=== PATIENT | male | born 1955 ===

== ENCOUNTER 2018-05-23 00:49 | Day surgery (SDC) | payer OTHER ==
[2018-05-22 08:05] LABS: BASOPHILS ABSOLUTE AUTO 0.05 K/mm3 (0.00-0.23); BASOPHILS PERCENT AUTO 1 % (0-2); EOSINOPHILS PERCENT AUTO 2 % (0-6); Hematocrit 42.6 % (37.0-53.0); Hemoglobin 13.4 g/dL (13.5-17.5); IMMATURE GRAN ABSOLUTE AUTO 0.02 K/mm3 (0.00-0.10); IMMATURE GRAN PERCENT AUTO 0 % (0-1); LYMPHOCYTES ABSOLUTE AUTO 3.02 K/mm3 (0.84-5.20); LYMPHOCYTES PERCENT AUTO 37 % (21-46); MONOCYTES ABSOLUTE AUTO 0.91 K/mm3 (0.16-1.47); MONOCYTES PERCENT AUTO 11 % (4-13); Mean Corpuscular HGB Conc 31.5 g/dL (31.5-36.5); Mean Corpuscular Volume 89 fL (80-100); Mean Platelet Volume 11.3 fL (9.1-12.4); NEUTROPHILS ABSOLUTE AUTO 4.06 K/mm3 (1.96-9.15); NEUTROPHILS PERCENT AUTO 49 % (41-73); Platelet Count 215 K/mm3 (150-400); RDW Coefficient Variation 16.3 % (11.7-14.2); RDW Standard Deviation 53.6 fL (35.1-46.3); Red Blood Cell Count 4.78 M/mm3 (4.30-5.90); White Blood Cell Count 8.26 K/mm3 (4.00-11.30)
[2018-05-22 08:18] LABS: International Normalized Ratio 1.1; Prothrombin Time Results 11.3 Sec (9.7-11.5)
[2018-05-22 08:19] LABS: Anion Gap 8 mmol/L (6-16); Blood Urea Nitrogen 17 mg/dL (8-24); Bun/Creatinine Ratio 15.9 (12.0-20.0); CO2, Blood 29 mmol/L (21-32); Calcium, Blood 8.9 mg/dL (8.5-10.1); Chloride, Blood 101 mmol/L (98-108); Creatinine, Blood 1.07 mg/dL (0.60-1.20); Glomerular Filtration Rate >60 (60-); Glucose, Blood 105 mg/dL (70-99); Potassium, Blood 4.4 mmol/L (3.5-5.5); Sodium, Blood 138 mmol/L (136-145)
[~2018-05-23] VITALS: Ht 185.4 cm; Wt 105.0 kg
[~2018-05-23 00:49] MED LIST: ALLO300 PO; ATOR20 PO; Effexor Xr150 MG PO; LOSA50 PO; Mirapex1 MG PO; PANT40 PO
[2018-05-23] MEDS ORDERED: Nitrostat0.4 MG SL (06:48)
[2018-05-23] MEDS ORDERED: HYDHOMSY PO (06:50)
[2018-05-23] MEDS ORDERED: ALBU90OI61 INH (06:51)
[2018-05-23] MEDS ORDERED: Metformin HCl500 MG PO (06:52)
[2018-05-23] MEDS ORDERED: WARF2 PO (06:52)
[2018-05-23] MEDS ORDERED: Lopressor 50 mg50 MG PO (06:52)
[2018-05-23] MEDS ORDERED: ENOX100I SC (07:50)
== END 2018-05-23 22:41 | disposition home or self-care (01) ==
LOC: MHTC 00:49
PROVIDERS: Internal Medicine Cardiovascular Disease
PROC: B246ZZ4 Ultrasonography of Right and Left Heart, Transesophageal (ICD-10-PCS; principal; 2018-05-23)
DX: I34.0 Nonrheumatic mitral (valve) insufficiency (principal); I34.1 Nonrheumatic mitral (valve) prolapse; I35.0 Nonrheumatic aortic (valve) stenosis; Z95.2 Presence of prosthetic heart valve; I10 Essential (primary) hypertension; E78.5 Hyperlipidemia, unspecified; E11.9 Type 2 diabetes mellitus without complications; G47.33 Obstructive sleep apnea (adult) (pediatric)
CPT/HCPCS: 36415; 80048; 82947; 85025; 85610; 93312; 93325; J2250; J7120

== ENCOUNTER 2023-02-01 06:29 | Emergency (ER) | payer OTHER ==
[~2023-02-01] VITALS: Ht 185.4 cm; Wt 74.8 kg
[~2023-02-01 06:29] MED LIST changes: +ALBU90OI61 INH; +AMOCLA875 PO; +ENOX100I SC; +HYDHOMSY PO; +Lopressor 50 mg50 MG PO; +Metformin HCl500 MG PO; +Nitrostat0.4 MG SL; +WARF2 PO
[2023-02-01 08:06] LABS: BASOPHILS ABSOLUTE AUTO 0.06 K/mm3 (0.00-0.23); BASOPHILS PERCENT AUTO 1 % (0-2); EOSINOPHILS ABSOLUTE AUTO 0.12 K/mm3 (0.00-0.68); EOSINOPHILS PERCENT AUTO 1 % (0-6); Hematocrit 36.9 % (37.0-53.0); Hemoglobin 12.6 g/dL (13.5-17.5); IMMATURE GRAN ABSOLUTE AUTO 0.02 K/mm3 (0.00-0.10); IMMATURE GRAN PERCENT AUTO 0 % (0-1); LYMPHOCYTES ABSOLUTE AUTO 1.52 K/mm3 (0.84-5.20); LYMPHOCYTES PERCENT AUTO 17 % (21-46); MONOCYTES PERCENT AUTO 11 % (4-13); Mean Corpuscular HGB 31.5 pg (26.0-34.0); Mean Corpuscular HGB Conc 34.1 g/dL (31.5-36.5); Mean Corpuscular Volume 92 fL (80-100); Mean Platelet Volume 11.1 fL (9.1-12.4); NEUTROPHILS PERCENT AUTO 70 % (41-73); Platelet Count 189 K/mm3 (150-400); RDW Coefficient Variation 15.5 % (11.7-14.2); RDW Standard Deviation 51.7 fL (35.1-46.3); White Blood Cell Count 9.02 K/mm3 (4.00-11.30)
[2023-02-01 08:23] LABS: Albumin, Blood 3.2 g/dL (3.4-5.0); Albumin/Globulin Ratio 0.9 (0.8-1.8); Bilirubin, Total 0.4 mg/dL (0.1-1.0); Bun/Creatinine Ratio 20.2 (12.0-20.0); Calcium, Blood 8.6 mg/dL (8.5-10.1); Creatinine, Blood 0.74 mg/dL (0.60-1.20); Globulin, Blood 3.5 g/dL (2.2-4.0); Potassium, Blood 4.2 mmol/L (3.5-5.5); Total Protein, Blood 6.7 g/dL (6.4-8.2)
== END 2023-02-01 09:57 | disposition home or self-care (01) ==
LOC: ER 06:29
PROVIDERS: Emergency Medicine
DX: I11.0 Hypertensive heart disease with heart failure (principal); I50.9 Heart failure, unspecified; F41.9 Anxiety disorder, unspecified; F32.A Depression, unspecified; I48.91 Unspecified atrial fibrillation; Z88.8 Allergy status to other drugs, medicaments and biological substances; Z79.899 Other long term (current) drug therapy; Z79.01 Long term (current) use of anticoagulants; Z79.84 Long term (current) use of oral hypoglycemic drugs
CPT/HCPCS: 36415; 71045; 80053; 83880; 84484; 85025; 93005; 93010; 96374; 96375; 99284-25; J1940; J2405

== ENCOUNTER 2025-06-22 15:40 | Inpatient (IN) | payer OTHER ==
[~2025-06-22] VITALS: Ht 185.4 cm; Wt 83.0 kg
[~2025-06-22 15:40] MED LIST changes: +ALBU90OI INH; -ALBU90OI61 INH; -ATOR20 PO; +ATOR80 PO; -Lopressor 50 mg50 MG PO; +METF500 PO; +METO25 PO; -Metformin HCl500 MG PO
[2025-06-22] MEDS ORDERED: Albuterol 2.5 MG/3 ML VIAL INH PRN (21:35)
[2025-06-22] MEDS ORDERED: Ondansetron HCl 2 MG / ML 2ML Vial IV PRN (21:40)
[2025-06-23] VITALS (8 sets, daily range): BP systolic 87–109; BP diastolic 64–88
--- NOTE | 2025-06-23 04:57 | NUR ---
PT A&O X4, VS WNL WITH EXCEPTION THAT B/P IS EXTREMELY LOW WHEN IN LYING POSITION. PT ARRIVED TO UNIT FROM ED, AND THEN PREVI[facility]. PT UP WITH ASSIST, DENIES PAIN, AND O2 @ 3L/NC WHICH IS BASELINE. HE IS COARSE WITH OCCASIONAL WHEEZING NOTED FOR LS, TELE IS AFIB IN 80'S. SKIN INTACT. USES CALL SYSTEM APPROPRIATELY. PLAN TO RETURN HOME WITH NEPHEW.
[2025-06-23 06:28] LABS: Alanine Aminotransfer (ALT/SGP 40.0 U/L (12-78); Albumin, Blood 2.5 g/dL (3.4-5.0); Albumin/Globulin Ratio 0.7 (0.8-1.8); Anion Gap 7.0 mmol/L (3-11); Aspartate Aminotrans (AST/SGOT 50.0 U/L (12-37); Bilirubin, Total 1.6 mg/dL (0.1-1.0); Blood Urea Nitrogen 15.0 mg/dL (8-24); CO2, Blood 34.0 mmol/L (21-32); Calcium, Blood 8.0 mg/dL (8.5-10.1); Chloride, Blood 99.0 mmol/L (98-108); Creatinine, Blood 0.67 mg/dL (0.60-1.20); Globulin, Blood 3.7 g/dL (2.2-4.0); Glucose, Blood 90.0 mg/dL (70-99); Magnesium, Blood 1.8 mg/dL (1.6-2.4); Potassium, Blood 3.9 mmol/L (3.5-5.5); Sodium, Blood 136.0 mmol/L (136-145); Total Protein, Blood 6.2 g/dL (6.4-8.2)
[2025-06-23 06:33] LABS: Hematocrit 28.9 % (37.0-53.0); Hemoglobin 9.4 g/dL (13.5-17.5); Mean Corpuscular HGB Conc 32.5 g/dL (31.5-36.5); Mean Corpuscular Volume 91 fL (80-100); NRBC ABSOLUTE 0.00 K/mm3 (0.00-0.02); NRBC Auto 0.0 /100 WBC (0.0-0.2); Platelet Count 127 K/mm3 (150-400); RDW Coefficient Variation 18.5 % (11.7-14.2); RDW Standard Deviation 60.2 fL (35.1-46.3)
[2025-06-23] MEDS ORDERED: Vancomycin (Pharmacy Consult) IV SCH (07:25)
[2025-06-23] MEDS ORDERED: Insulin Human Lispro 100 Units/ML 3ML Syringe SC SCH (07:30)
[2025-06-23] MEDS ORDERED: NS 250 ML IV PRN (09:00)
[2025-06-23] MEDS ORDERED: CefTRIAXone Sodium 1,000 MG in NS 100 ML IV SCH (09:00)
--- NOTE | 2025-06-23 15:09 | NUR ---
CALLED RESIDENT- SPOKE TO ELLI AND CONVEYED THE PT C/O RESTLESS LEGS. PT APPEARED TO HAVE AN INCREASED WORK OF BREATHING, THOUGH HE DENIES FEELING SHORT OF BREATH. O2 SATS WERE DIFFICULT TO OBTAIN, THE PULSE OX WAS NOT READING WELL. FINAL READING SHOWS 100% ON 3L VIA NC. THEY WILL COME SEE THE PT.
--- NOTE | 2025-06-23 17:22 | NUR ---
CARDIOLOGY CAME TO SEE THE PT- CARDIOLOGY CAME AND SPOKE TO THE PT ABOUT HIS ECHO RESULTS AND WHAT THAT MEANS FOR THE PT. HE HAD A CONVERSATION WITH THE PT ABOUT CODE STATUS AND THE PT STATED HE WANTS TO BE DNR. DR FABIAN REQUESTED THIS RN TO CHANGE THE PT CODE STATUS TO DNR IN THE COMPUTER. ORDER PLACED IN ORDER MANAGEMENT.
[2025-06-23] MEDS ORDERED: Furosemide 10 MG / ML 2ML Vial IV SCH (18:00)
--- NOTE | 2025-06-23 19:44 | NUR ---
SHIFT SUMMARY- PT ALERT AND ORIENTED. HE HAS HAD INCREASED WORK OF BREATHING WITH ANY ACTIVITY. CARDIOLOGY CAME TO SEE THE PT AND ORDERED A OT ORDER OF METOLAZONE PO. CALLED DR ZALDIVAR PRIOR TOP ADMINISTRATION THE PT BP WAS 102/77 WITH A MAP OF 89. ORDER TO GIVE THE METOLAZONE AND THE LASIX, PT RECIEVED A DOSE OF [place] WELL. REQUESTED HOLD PARAMETERS FOR THE IV LASIX; ORDER TO HOLD FOR SBP LESS THAN 90. FAMILY IS AT THE BEDSIDE. DNR WAS CONFIRMED WITH COUNTY HISTORIAN [place] AND PLACED ON THE PT LEFT WRIST AT THE TIME OF BEDSIDE REPORT. NIGHT RN IS AWARE. FAMILY IS AWARE. PT SITTING UP IN BED, AND C/O DIZZINESS. NIGHT RN DOING VITALS RECHECK. NO ADDITIONAL S&S OF DISTRESS NOTED AT THE TIME OF BEDSIDE REPORT.
[2025-06-24] VITALS (9 sets, daily range): BP systolic 91–156; BP diastolic 69–133
--- NOTE | 2025-06-24 03:47 | NUR ---
PT ALERT AND ORIENTD X4 DURING SHIFT. PATIENT SPENT TIME WITH FAMILY DURING SHIFT. DUE TO BEING ON LASIX AND PATIENT WANTING TO GET QUALITY REST DURING THE NIGHT, A EXTERNAL CATHETER WAS PLACED. PATIENT USES CALL LIGHT APPROPRIATELY. BED IN LOW POSITION WITH THE WHEELS LOCKED. CALL LIGHT WITHIN REACH
[2025-06-24 05:42] LABS: BASOPHILS ABSOLUTE AUTO 0.05 K/mm3 (0.00-0.23); BASOPHILS PERCENT AUTO 1 % (0-2); EOSINOPHILS ABSOLUTE AUTO 0.05 K/mm3 (0.00-0.68); EOSINOPHILS PERCENT AUTO 1 % (0-6); Hematocrit 27.8 % (37.0-53.0); Hemoglobin 9.2 g/dL (13.5-17.5); IMMATURE GRAN ABSOLUTE AUTO 0.03 K/mm3 (0.00-0.10); IMMATURE GRAN PERCENT AUTO 1 % (0-1); LYMPHOCYTES ABSOLUTE AUTO 0.96 K/mm3 (0.84-5.20); LYMPHOCYTES PERCENT AUTO 16 % (21-46); MONOCYTES ABSOLUTE AUTO 0.80 K/mm3 (0.16-1.47); MONOCYTES PERCENT AUTO 13 % (4-13); Mean Corpuscular HGB Conc 33.1 g/dL (31.5-36.5); Mean Corpuscular Volume 91 fL (80-100); NEUTROPHILS ABSOLUTE AUTO 4.32 K/mm3 (1.96-9.15); NEUTROPHILS PERCENT AUTO 70 % (41-73); NRBC ABSOLUTE 0.00 K/mm3 (0.00-0.02); NRBC Auto 0.0 /100 WBC (0.0-0.2); Platelet Count 129 K/mm3 (150-400); RDW Coefficient Variation 18.1 % (11.7-14.2); RDW Standard Deviation 59.0 fL (35.1-46.3)
[2025-06-24 06:07] LABS: Alanine Aminotransfer (ALT/SGP 36.0 U/L (12-78); Albumin, Blood 2.4 g/dL (3.4-5.0); Albumin/Globulin Ratio 0.7 (0.8-1.8); Anion Gap 5.0 mmol/L (3-11); Aspartate Aminotrans (AST/SGOT 43.0 U/L (12-37); Bilirubin, Total 1.0 mg/dL (0.1-1.0); Blood Urea Nitrogen 18.0 mg/dL (8-24); CO2, Blood 37.0 mmol/L (21-32); Calcium, Blood 8.1 mg/dL (8.5-10.1); Chloride, Blood 96.0 mmol/L (98-108); Creatinine, Blood 0.77 mg/dL (0.60-1.20); Globulin, Blood 3.6 g/dL (2.2-4.0); Glucose, Blood 105.0 mg/dL (70-99); Potassium, Blood 3.5 mmol/L (3.5-5.5); Sodium, Blood 134.0 mmol/L (136-145); Total Protein, Blood 6.0 g/dL (6.4-8.2)
[2025-06-24] MEDS ORDERED: FERSU300 PO (12:43)
[2025-06-24] MEDS ORDERED: ELIQUIS5 M2 PO (12:43)
[2025-06-24] MEDS ORDERED: LIDO700A20 TOP (12:43)
[2025-06-24] MEDS ORDERED: FURO20 PO (12:43)
[2025-06-24] MEDS ORDERED: POTA10T PO (12:43)
[2025-06-24] MEDS ORDERED: ROPINIROLE HCL4 M2 PO (12:44)
[2025-06-24 12:45] LABS: Anion Gap 6.0 mmol/L (3-11); Blood Urea Nitrogen 17.0 mg/dL (8-24); CO2, Blood 38.0 mmol/L (21-32); Calcium, Blood 8.5 mg/dL (8.5-10.1); Chloride, Blood 94.0 mmol/L (98-108); Creatinine, Blood 0.73 mg/dL (0.60-1.20); Glucose, Blood 114.0 mg/dL (70-99); Magnesium, Blood 2.0 mg/dL (1.6-2.4); Potassium, Blood 3.6 mmol/L (3.5-5.5); Sodium, Blood 134.0 mmol/L (136-145)
[2025-06-24] MEDS ORDERED: GABA300 PO (12:45)
[2025-06-24] MEDS ORDERED: STIOLTO RESPIMAT4 G1 INH (12:46)
[2025-06-24] MEDS ORDERED: Lidocaine 4% 1 Patch TOP PRN (13:15)
[2025-06-24] MEDS ORDERED: Ipratropium/Albuterol SulF 2.5-0.5MG/3 ML Amp INH SCH ×2 (13:20→19:32)
--- NOTE | 2025-06-24 16:22 | NUR ---
MET WITH PATIENT. DISCUSSED POLST. PATIENT CHOSE COMFORT MEASURES AND DNR. THERAPUTIC CONVERSATION. PATIENT WOULD LIKE ME TO COME BACK TOMORROW TO DISCUSS HOSPICE WITH HIM AND HIS DAUGHTER
[2025-06-24] MEDS ORDERED: Potassium Chloride 10 Meq Tablet SA PO SCH (17:00)
--- NOTE | 2025-06-24 19:45 | NUR ---
SHIFT SUMMARY- PT ALERT AND ORIENTED. HE HAS A PUREWICK IN PLACE AND HAS HAD 3.5L OF URINE OUTPUT. CANISTER EMPTIED JUST PRIOR TO SHIFT CHANGE. PT WAS C/O SOME MUSCLE CRAMPING IN HIS FORE ARM TODAY. PT WAS ALERT AND PARTICIPATED IN BEDSIDE REPORT THIS EVENING. HE APPEARS VERY DRY, PALE AND DRAWN. HE IS VERY SAD ABOUT HIS DIAGNOSIS BUT WANTS TO REMAIN UPBEAT. WILL PLACE A PASTORAL CARE CONSULT FOR HIM PRIOR TO LEAVING. HE HAS A WEEPING WOUND ON THE LEFT CALF. HE USES THE IS AND FLUTTER VALVE WELL. PT SITTING UP IN BED, CALL LIGHT IN REACH NO S&S OF DISTRESS NOTED AT THE TIME OF BEDSIDE REPORT.
[2025-06-25 00:12] VITALS: BP 101/61
[2025-06-25 04:38] VITALS: BP 104/83
--- NOTE | 2025-06-25 05:15 | NUR ---
BAND SAW RUNNER SUMMARY PT A&OX4, VSS. CONCERNS FOR HYPOTENSION DURING AM SHIFT. HOWEVER, BP HAS BEEN SLOWLY COMING BACK UP. PT HAS NOT BEEN GETTING CONSISTENT SLEEP THROUGHOUT THE NIGHT. RESTING ON AND OFF. PT STATES THIS IS NORMAL D/T CHRONIC PAIN. WHEN ASKED ABOUT OBTAINING PAIN MEDS FOR PT, PT STATED HE WANTED TO STAY AWAY FROM ANY SORT OF PAIN PILLS. LIDOCAINE PATCH ADMINISTERED INSTEAD TO HELP WITH PAIN. LLE WOUND DRESSING CHANGED PER ORDER. DRESSING REMAINS CLEAN DRY AND INTACT. MALE PUREWICK IN PLACE. DRAINING CLEAR, YELLOW URINE TO GRAVITY. PT IS ALSO TRYING TO REMAIN OPTIMISTIC W/ NEW DIAGNOSIS. PT WILL REMINISCE ABOUT AND SON, BOTH OF WHOM HAVE . PT WILL ALSO TELL STAFF LIFE STORIES. PT IS GOING THROUGH GRIEIVING PROCESS AND EXPERIENCING A SENSE OF HOPELESSNESS. HE IS LOOKING FORWARD TO SPIRITUAL CARE, THERAPY DOG, AND PALLIATIVE CARE VISITS IN THE MORNING. PT EXPRESSED DESIRE TO HAVE A VISIT FROM A ASSOCIATE MARKETING MANAGER THAT IS NON-CHURCH PT STATES HE HIMSELF IS A SABIANISM. WILL PASS PT'S DESIRES ONTO AM SHIFT. PT REMAINS ON TELE. A FIB W/ BBB AT 94. PT HAS BEEN COOPERATIVE W/ ASSESSMENTS AND MEDICATIONS. ABLE TO VOICE NEEDS WELL W/ CALL LIGHT. BED RAILS UP X 2, BED IN LOWEST POSITION, BED WHEELS LOCKED, PERSONAL BELONGINGS AND CALL LIGHT WITHIN REACH FOR SAFETY.
[2025-06-25 05:45] LABS: BASOPHILS ABSOLUTE AUTO 0.08 K/mm3 (0.00-0.23); BASOPHILS PERCENT AUTO 1 % (0-2); EOSINOPHILS ABSOLUTE AUTO 0.05 K/mm3 (0.00-0.68); EOSINOPHILS PERCENT AUTO 1 % (0-6); Hematocrit 30.7 % (37.0-53.0); Hemoglobin 10.1 g/dL (13.5-17.5); IMMATURE GRAN ABSOLUTE AUTO 0.04 K/mm3 (0.00-0.10); IMMATURE GRAN PERCENT AUTO 1 % (0-1); LYMPHOCYTES ABSOLUTE AUTO 1.06 K/mm3 (0.84-5.20); LYMPHOCYTES PERCENT AUTO 13 % (21-46); MONOCYTES ABSOLUTE AUTO 1.04 K/mm3 (0.16-1.47); MONOCYTES PERCENT AUTO 13 % (4-13); Mean Corpuscular HGB Conc 32.9 g/dL (31.5-36.5); Mean Corpuscular Volume 90 fL (80-100); NEUTROPHILS ABSOLUTE AUTO 5.64 K/mm3 (1.96-9.15); NEUTROPHILS PERCENT AUTO 71 % (41-73); NRBC ABSOLUTE 0.00 K/mm3 (0.00-0.02); NRBC Auto 0.0 /100 WBC (0.0-0.2); Platelet Count 147 K/mm3 (150-400); RDW Coefficient Variation 18.0 % (11.7-14.2); RDW Standard Deviation 58.7 fL (35.1-46.3)
[2025-06-25 06:04] LABS: Alanine Aminotransfer (ALT/SGP 38.0 U/L (12-78); Albumin, Blood 2.7 g/dL (3.4-5.0); Albumin/Globulin Ratio 0.6 (0.8-1.8); Anion Gap 5.0 mmol/L (3-11); Aspartate Aminotrans (AST/SGOT 43.0 U/L (12-37); Bilirubin, Total 1.1 mg/dL (0.1-1.0); Blood Urea Nitrogen 19.0 mg/dL (8-24); CO2, Blood 37.0 mmol/L (21-32); Calcium, Blood 8.2 mg/dL (8.5-10.1); Chloride, Blood 92.0 mmol/L (98-108); Creatinine, Blood 0.79 mg/dL (0.60-1.20); Globulin, Blood 4.2 g/dL (2.2-4.0); Glucose, Blood 104.0 mg/dL (70-99); Potassium, Blood 3.3 mmol/L (3.5-5.5); Sodium, Blood 131.0 mmol/L (136-145); Total Protein, Blood 6.9 g/dL (6.4-8.2)
[2025-06-25 07:35] VITALS: BP 106/73
[2025-06-25 10:43] VITALS: BP 112/86
--- NOTE | 2025-06-25 15:21 | NUR ---
MET WITH PATIENT HIS SISTER AND HIS DAUGHTER. DISCUSSED OPTION FOR CARE AFTER DISCHARGE. WE DISCUSSED HOME HEALTH, PALLIATIVE CARE, AND HOSPICE. DISCUSSED THIS WITH CARE COORDINATION. CC WENT BACK TO ROOM WITH ME TO CONTINUE DISCUSSION. PRESENTED OPTIONS PATIENTS DAUGHTER HAD DIFFICULTY UNDERSTANDING DIFFERENT OPTIONS AVALIABLE. FAMILY WILL CONTINUE TO DISCUSS TO MAKE A DECISION ABOUT CARE AFTER DISCHARGE.
[2025-06-25 16:30] VITALS: BP 99/75
[2025-06-25 16:39] LABS: Anion Gap 5.0 mmol/L (3-11); Blood Urea Nitrogen 20.0 mg/dL (8-24); CO2, Blood 37.0 mmol/L (21-32); Calcium, Blood 8.5 mg/dL (8.5-10.1); Chloride, Blood 92.0 mmol/L (98-108); Creatinine, Blood 0.96 mg/dL (0.60-1.20); Glucose, Blood 103.0 mg/dL (70-99); Potassium, Blood 4.4 mmol/L (3.5-5.5); Sodium, Blood 130.0 mmol/L (136-145)
[2025-06-25 17:50] VITALS: BP 103/81
--- NOTE | 2025-06-25 19:06 | NUR ---
SHIFT SUMMARY PT IS A/OX4. 1 PERSON ASSIST WITH FWW. NO ACUTE CHANGES THROUGHOUT THIS SHIFT. ON 3L NC, SATS >95%. ON TELE RUNNING AFIB IN THE 80-90'S. PT USING URINAL AT BEDSIDE. BLE WOUNDS CLEASED AND COVERED WITH DRESSINGS PER WOUND CARE ORDERS. FAMILY AT BEDSIDE THROUGHOUT THIS AFTERNOOON. PT IS PLEASANT AND COOPERATIVE WITH CARE.
[2025-06-26] VITALS (7 sets, daily range): BP systolic 88–110; BP diastolic 68–89
--- NOTE | 2025-06-26 05:56 | NUR ---
AIR COMMODORE SUMMARY PT A&OX4, VSS. PT SHOWING IMPROVEMENTS IN MULTIPLE AREAS. PT HAS SLEPT FOR THE GREATER HALF OF THE PM SHIFT. CONTROLABLE CHRONIC PAIN W/ HEAT AND LIDOCAINE PATCH MOST LIKELY IMPROVING SLEEP QUALITY. PT AGAIN VOICED NEED TO AVOID PILL RELATED PAIN RELIEF MEASURES D/T CONCERNS FOR ADDICTION. PT AND FAMILY EXPRESSED SATISFACTION W/ SPIRITUAL CARE, THERAPY DOG, AND PALLIATIVE CARE VISITS. WILL BENEFIT FROM ADDITIONAL VISITS TO CLEAR UP ANY QUESTIONS/CONCERNS. WOUND DRESSINGS CHANGED PER WOUND CARE ORDERS AND REMAIN C/D/I. PATIENT REMAINS ON TELE. A FIB AT 88 W/ BBB. PT IS ALSO ON 3L NC FOR COMFORT. PT EXPRESSED DYSPNEA W/ EXERTION AND REQUESTED O2. SATS REMAINED 94% OR ABOVE. PT DENIES CHEST PAIN/DISCOMFORT. PT EXPRESSED DESIRE TO DISCHARGE TODAY. WILL PASS ONTO DAY SHIFT. BED RAILS UP X 2, BED IN LOWEST POSITION, BED WHEELS LOCKED, PERSONAL BELONGINGS AND CALL LIGHT WITHIN REACH FOR SAFETY.
[2025-06-26 06:15] LABS: BASOPHILS ABSOLUTE AUTO 0.06 K/mm3 (0.00-0.23); BASOPHILS PERCENT AUTO 1 % (0-2); EOSINOPHILS ABSOLUTE AUTO 0.03 K/mm3 (0.00-0.68); EOSINOPHILS PERCENT AUTO 1 % (0-6); Hematocrit 29.8 % (37.0-53.0); Hemoglobin 10.1 g/dL (13.5-17.5); IMMATURE GRAN ABSOLUTE AUTO 0.03 K/mm3 (0.00-0.10); IMMATURE GRAN PERCENT AUTO 1 % (0-1); LYMPHOCYTES ABSOLUTE AUTO 1.17 K/mm3 (0.84-5.20); LYMPHOCYTES PERCENT AUTO 20 % (21-46); MONOCYTES ABSOLUTE AUTO 0.98 K/mm3 (0.16-1.47); MONOCYTES PERCENT AUTO 17 % (4-13); Mean Corpuscular HGB Conc 33.9 g/dL (31.5-36.5); Mean Corpuscular Volume 88 fL (80-100); NEUTROPHILS ABSOLUTE AUTO 3.58 K/mm3 (1.96-9.15); NEUTROPHILS PERCENT AUTO 61 % (41-73); NRBC ABSOLUTE 0.00 K/mm3 (0.00-0.02); NRBC Auto 0.0 /100 WBC (0.0-0.2); Platelet Count 146 K/mm3 (150-400); RDW Coefficient Variation 17.8 % (11.7-14.2); RDW Standard Deviation 56.4 fL (35.1-46.3)
[2025-06-26 06:37] LABS: Alanine Aminotransfer (ALT/SGP 40.0 U/L (12-78); Albumin, Blood 2.7 g/dL (3.4-5.0); Albumin/Globulin Ratio 0.7 (0.8-1.8); Anion Gap 7.0 mmol/L (3-11); Aspartate Aminotrans (AST/SGOT 53.0 U/L (12-37); Bilirubin, Total 1.1 mg/dL (0.1-1.0); Blood Urea Nitrogen 21.0 mg/dL (8-24); CO2, Blood 34.0 mmol/L (21-32); Calcium, Blood 8.3 mg/dL (8.5-10.1); Chloride, Blood 94.0 mmol/L (98-108); Creatinine, Blood 0.82 mg/dL (0.60-1.20); Globulin, Blood 4.0 g/dL (2.2-4.0); Glucose, Blood 104.0 mg/dL (70-99); Potassium, Blood 4.4 mmol/L (3.5-5.5); Sodium, Blood 131.0 mmol/L (136-145); Total Protein, Blood 6.7 g/dL (6.4-8.2)
--- NOTE | 2025-06-26 11:54 | NUR ---
PATIENT MADE THE DECISION TO PRUSUE HOSPICE BASED ON CARDIOLOGY RECOMENDATION. HE HAS SEVER MITRAL BINH STENOSIS. HIS EF IS 30%. SEVER GLOBAL SYSTOLIC DYSFUNCTION. SEVER TRICUSPID REGURGITATION. MILD PULMONARY HTN. RIGHT VENTRICULAR FAILURE, CARDIAC CACHEXIA WITH ANASARCA. HE IS NOT A SURGICAL CANDIDATE. PATIENT ALSO HAS SIGNIFICANT COPD, DM, ROSE, HTN, AND AFIB. HIS KPS SCORE IS 30%. WT LOSS OF 25LBS WITHIN THE PAST YEAR.
--- NOTE | 2025-06-26 13:51 | NUR ---
Spiritual care visit conducted Malick (pt) is awake and alert and at bedside with daughter Janette. Janette describes feeling "bummed" about her father's health. She expresses emotion in the form of tears. Previously he was thought to be improving but has recently been admitted to a hospice facility in [place] and expects to live six months to a year. Provided compassionate listening and encouraged pt and daughter. Provided anticipatory grief education and emphasized an ability to remain positive while also being realistic. Conducted life review with pt. 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 Daughter is interested in preserving memories and often takes notes. Pt and daughter appear more at ease while recounting cherished stories from the past. Attending RT and nurse provide care and are a helpful presence. More family members arrive. Offered prayer to family and pt and they thank me for the visit. Expressed my ongoing availibility should they wish to have further discussions.
--- NOTE | 2025-06-26 16:51 | NUR ---
SHIFT SUMMARY PT IS A/OX4. 1 PERSON ASSIST WITH FWW. PT AGREED TO TRANSITION TO HOSPICE. DAUGHTER AND FRIENDS AT BEDSIDE THROUGHOUT THIS SHIFT. PT EXPERIENCING SOME GRIEF RELATED TO HOSPICE DECISION. PT VISITED BY SPIRITUAL CARE THIS AFTERNOON. USING URINAL AT BEDSIDE. ON 3L NC, SATS >95%. TELE DISCONTINUED THIS AFTERNOON, RUNNING AFIB W/BBB IN THE 90'S. PT IS PLEASANT AND COOPERATIVE WITH CARE.
[2025-06-27 05:32] VITALS: BP 112/89
--- NOTE | 2025-06-27 06:41 | NUR ---
SHIFT SUMMARY AT START OF SHIFT, PT SITTING UP IN HIS BED LISTENING TO MUSIC. PT IS PLEASANT AND COOPERATIVE WITH HIS CARE. PT TOOK HIS NC OFF ACCIDENTALLY. THIS RN REPLACED AND PT DOING WELL. PT UP AND DOWN SEVERAL TIMES THROUGH THE NIGHT, WALKING TO BATHROOM WITH FWW. PT WOKE 0525 FEELING WEAK. PT ASKED TO STAY IN BED FOR NOW UNTIL WEAKNESS PASSES. PT SLEPT FOR REMAINDER OF SHIFT, WAKING FOR MED PASS AND MORNING VITALS.
[2025-06-27 07:40] LABS: BASOPHILS ABSOLUTE AUTO 0.07 K/mm3 (0.00-0.23); BASOPHILS PERCENT AUTO 1 % (0-2); EOSINOPHILS ABSOLUTE AUTO 0.09 K/mm3 (0.00-0.68); EOSINOPHILS PERCENT AUTO 1 % (0-6); Hematocrit 29.0 % (37.0-53.0); Hemoglobin 9.8 g/dL (13.5-17.5); IMMATURE GRAN ABSOLUTE AUTO 0.03 K/mm3 (0.00-0.10); IMMATURE GRAN PERCENT AUTO 1 % (0-1); LYMPHOCYTES ABSOLUTE AUTO 1.24 K/mm3 (0.84-5.20); LYMPHOCYTES PERCENT AUTO 20 % (21-46); MONOCYTES ABSOLUTE AUTO 0.98 K/mm3 (0.16-1.47); MONOCYTES PERCENT AUTO 15 % (4-13); Mean Corpuscular HGB Conc 33.8 g/dL (31.5-36.5); Mean Corpuscular Volume 88 fL (80-100); NEUTROPHILS ABSOLUTE AUTO 3.96 K/mm3 (1.96-9.15); NEUTROPHILS PERCENT AUTO 62 % (41-73); NRBC ABSOLUTE 0.00 K/mm3 (0.00-0.02); NRBC Auto 0.0 /100 WBC (0.0-0.2); Platelet Count 172 K/mm3 (150-400); RDW Coefficient Variation 18.0 % (11.7-14.2); RDW Standard Deviation 56.9 fL (35.1-46.3)
[2025-06-27 07:46] VITALS: BP 95/77
[2025-06-27 08:05] LABS: Alanine Aminotransfer (ALT/SGP 39.0 U/L (12-78); Albumin, Blood 2.9 g/dL (3.4-5.0); Albumin/Globulin Ratio 0.7 (0.8-1.8); Anion Gap 5.0 mmol/L (3-11); Aspartate Aminotrans (AST/SGOT 52.0 U/L (12-37); Bilirubin, Total 1.0 mg/dL (0.1-1.0); Blood Urea Nitrogen 20.0 mg/dL (8-24); CO2, Blood 37.0 mmol/L (21-32); Calcium, Blood 8.5 mg/dL (8.5-10.1); Chloride, Blood 93.0 mmol/L (98-108); Creatinine, Blood 0.83 mg/dL (0.60-1.20); Globulin, Blood 4.3 g/dL (2.2-4.0); Glucose, Blood 97.0 mg/dL (70-99); Magnesium, Blood 1.8 mg/dL (1.6-2.4); Potassium, Blood 4.0 mmol/L (3.5-5.5); Sodium, Blood 131.0 mmol/L (136-145); Total Protein, Blood 7.2 g/dL (6.4-8.2)
[2025-06-27 08:42] LABS: Ferritin, Serum 123.0 ng/mL (26-388); Total Iron Binding Capacity 356.0 ug/dL (250-450)
[2025-06-27] MEDS ORDERED: Furosemide 10 MG / ML 2ML Vial IV SCH (09:00)
[2025-06-27 12:28] VITALS: BP 113/73
[2025-06-27 13:44] LABS: Anion Gap 7.0 mmol/L (3-11); Blood Urea Nitrogen 21.0 mg/dL (8-24); CO2, Blood 33.0 mmol/L (21-32); Calcium, Blood 8.4 mg/dL (8.5-10.1); Chloride, Blood 93.0 mmol/L (98-108); Creatinine, Blood 0.79 mg/dL (0.60-1.20); Glucose, Blood 114.0 mg/dL (70-99); Magnesium, Blood 1.9 mg/dL (1.6-2.4); Potassium, Blood 4.4 mmol/L (3.5-5.5); Sodium, Blood 129.0 mmol/L (136-145)
[2025-06-27 16:55] VITALS: BP 102/77
[2025-06-27 17:54] VITALS: BP 104/87
--- NOTE | 2025-06-27 18:15 | NUR ---
PATIENT MAINLY INDEPENDENT IN ROOM, NEEDS ENCOURAGED TO USE OXYGEN PATIENT REMOVES AND THEN STATES SOME SHORTNESS OF BREATH. DRESSINGS CHANGED TODAY. PATIENT TOLERATED.
[2025-06-27 19:54] VITALS: BP 105/83
[2025-06-27 20:11] LABS: Anion Gap 7.0 mmol/L (3-11); Blood Urea Nitrogen 18.0 mg/dL (8-24); CO2, Blood 36.0 mmol/L (21-32); Calcium, Blood 8.4 mg/dL (8.5-10.1); Chloride, Blood 92.0 mmol/L (98-108); Creatinine, Blood 0.9 mg/dL (0.60-1.20); Glucose, Blood 98.0 mg/dL (70-99); Potassium, Blood 4.3 mmol/L (3.5-5.5); Sodium, Blood 131.0 mmol/L (136-145)
[2025-06-28 02:29] VITALS: BP 102/81
[2025-06-28 05:25] LABS: BASOPHILS ABSOLUTE AUTO 0.08 K/mm3 (0.00-0.23); BASOPHILS PERCENT AUTO 1 % (0-2); EOSINOPHILS ABSOLUTE AUTO 0.10 K/mm3 (0.00-0.68); EOSINOPHILS PERCENT AUTO 2 % (0-6); Hematocrit 27.6 % (37.0-53.0); Hemoglobin 9.2 g/dL (13.5-17.5); IMMATURE GRAN ABSOLUTE AUTO 0.03 K/mm3 (0.00-0.10); IMMATURE GRAN PERCENT AUTO 1 % (0-1); LYMPHOCYTES ABSOLUTE AUTO 1.10 K/mm3 (0.84-5.20); LYMPHOCYTES PERCENT AUTO 18 % (21-46); MONOCYTES ABSOLUTE AUTO 0.99 K/mm3 (0.16-1.47); MONOCYTES PERCENT AUTO 16 % (4-13); Mean Corpuscular HGB Conc 33.3 g/dL (31.5-36.5); Mean Corpuscular Volume 89 fL (80-100); NEUTROPHILS ABSOLUTE AUTO 3.77 K/mm3 (1.96-9.15); NEUTROPHILS PERCENT AUTO 62 % (41-73); NRBC ABSOLUTE 0.00 K/mm3 (0.00-0.02); NRBC Auto 0.0 /100 WBC (0.0-0.2); Platelet Count 167 K/mm3 (150-400); RDW Coefficient Variation 17.9 % (11.7-14.2); RDW Standard Deviation 56.6 fL (35.1-46.3)
[2025-06-28 05:48] LABS: Alanine Aminotransfer (ALT/SGP 34.0 U/L (12-78); Albumin, Blood 2.7 g/dL (3.4-5.0); Albumin/Globulin Ratio 0.7 (0.8-1.8); Anion Gap 7.0 mmol/L (3-11); Aspartate Aminotrans (AST/SGOT 44.0 U/L (12-37); Bilirubin, Total 0.8 mg/dL (0.1-1.0); Blood Urea Nitrogen 21.0 mg/dL (8-24); CO2, Blood 35.0 mmol/L (21-32); Calcium, Blood 8.1 mg/dL (8.5-10.1); Chloride, Blood 93.0 mmol/L (98-108); Creatinine, Blood 0.99 mg/dL (0.60-1.20); Globulin, Blood 4.1 g/dL (2.2-4.0); Glucose, Blood 92.0 mg/dL (70-99); Magnesium, Blood 1.8 mg/dL (1.6-2.4); Potassium, Blood 4.4 mmol/L (3.5-5.5); Sodium, Blood 131.0 mmol/L (136-145); Total Protein, Blood 6.8 g/dL (6.4-8.2)
--- NOTE | 2025-06-28 06:35 | NUR ---
SHIFT SUMMARY PT A/Ox4, PLEASANT. VSS ON 3L; PT FOUND WITHOUT NC IN PLACE, SO2 > 90%, DENIED SOB X2. PT UP TO RESTROOM WITH SBA/FWW. [address]. PT REPORTS L NECK PAIN, LIDOCAINE PATCH MINIMALLY EFFECTIVE. NO ACUTE CHANGES OVERNIGHT.
[2025-06-28 07:31] VITALS: BP 97/76
[2025-06-28 13:09] VITALS: BP 97/73
--- NOTE | 2025-06-28 17:29 | NUR ---
SHIFT SUMMARY PT CONT LEVEL OF CARE. PT NOTED TO BE A&OX4. PT CONT TO VOICE C/O NECK PAIN. PROVIDER NOTIFIED AND NEW ORDERS RECIEVED SEE MAR FOR DETAILS. PT CONT WITH STRICT I&O AND A 1500ML FLUID RESTRICTION. PT CONT TO UTILIZE URINAL AT BEDSIDE. PT CONT WITH IV LASIX WITH EDEMA PRESENT TO BLE. [facility].
[2025-06-28 18:11] VITALS: BP 90/77
[2025-06-28 20:03] VITALS: BP 98/86
--- NOTE | 2025-06-29 05:27 | NUR ---
PT A&O, C/0 PAIN IN LEFT NECK AND SHOULDER MEDICATION GIVEN RX. PT URINATING INDEPENDENTLY WITH CLEAR YELLOW URINE. TRACED BLE EDEMA. PT HAS C/0 NAUSEA T/O THIS SHIFT. HE DID NOT SLEEP MUCH T/O THIS SHIFT.
[2025-06-29 06:17] LABS: Hematocrit 29.6 % (37.0-53.0); Hemoglobin 9.9 g/dL (13.5-17.5)
[2025-06-29 06:25] VITALS: BP 107/78
[2025-06-29 06:37] LABS: Alanine Aminotransfer (ALT/SGP 34.0 U/L (12-78); Albumin, Blood 2.9 g/dL (3.4-5.0); Albumin/Globulin Ratio 0.7 (0.8-1.8); Anion Gap 5.0 mmol/L (3-11); Aspartate Aminotrans (AST/SGOT 43.0 U/L (12-37); Bilirubin, Total 1.0 mg/dL (0.1-1.0); Blood Urea Nitrogen 22.0 mg/dL (8-24); CO2, Blood 36.0 mmol/L (21-32); Calcium, Blood 8.3 mg/dL (8.5-10.1); Chloride, Blood 93.0 mmol/L (98-108); Creatinine, Blood 0.93 mg/dL (0.60-1.20); Globulin, Blood 4.4 g/dL (2.2-4.0); Glucose, Blood 80.0 mg/dL (70-99); Magnesium, Blood 2.0 mg/dL (1.6-2.4); Potassium, Blood 4.4 mmol/L (3.5-5.5); Sodium, Blood 130.0 mmol/L (136-145); Total Protein, Blood 7.3 g/dL (6.4-8.2)
[2025-06-29 07:50] VITALS: BP 93/77
[2025-06-29 12:33] VITALS: BP 107/85
[2025-06-29] MEDS ORDERED: Lidocaine HCl 4% Cream 5 GM TOP SCH (14:00)
--- NOTE | 2025-06-29 14:57 | NUR ---
Spiritual Care Visit. Pt. is awake and sitting up onthe side of his bed when he welcomed my visit. Facilitated a lengthy life review and considered matters of ovidio and belief. Pt. spoke of how he and his became Christians together. Listen with interest and empathy. Rapport is significant developed when this phone engineer and the Pt. 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 Prayed with the Pt. Pt. verbalized gratitude for the spiritual care visit.
[2025-06-29 17:31] VITALS: BP 112/87
--- NOTE | 2025-06-29 18:34 | NUR ---
SHIFT SUMMARY PT CONT LEVEL OF CARE. PT CONT TO STRUGGLE WITH MANAGEMENT OF NECK PAIN AND WAS STARTED ON NEW MEDICATION THIS SHIFT THAT PT STATED IS HELPING. PT HAS BEEN EXCEPTED AT [facility] AND PLAN IS TO DC TOMORROW TO [facility].
[2025-06-29 19:20] VITALS: BP 103/81
[2025-06-30 04:53] VITALS: BP 98/67
[2025-06-30 05:03] LABS: BASOPHILS ABSOLUTE AUTO 0.06 K/mm3 (0.00-0.23); BASOPHILS PERCENT AUTO 1 % (0-2); EOSINOPHILS ABSOLUTE AUTO 0.08 K/mm3 (0.00-0.68); EOSINOPHILS PERCENT AUTO 2 % (0-6); Hematocrit 28.9 % (37.0-53.0); Hemoglobin 9.7 g/dL (13.5-17.5); IMMATURE GRAN ABSOLUTE AUTO 0.02 K/mm3 (0.00-0.10); IMMATURE GRAN PERCENT AUTO 0 % (0-1); LYMPHOCYTES ABSOLUTE AUTO 1.16 K/mm3 (0.84-5.20); LYMPHOCYTES PERCENT AUTO 23 % (21-46); MONOCYTES ABSOLUTE AUTO 0.89 K/mm3 (0.16-1.47); MONOCYTES PERCENT AUTO 18 % (4-13); Mean Corpuscular HGB Conc 33.6 g/dL (31.5-36.5); Mean Corpuscular Volume 89 fL (80-100); NEUTROPHILS ABSOLUTE AUTO 2.87 K/mm3 (1.96-9.15); NEUTROPHILS PERCENT AUTO 57 % (41-73); NRBC ABSOLUTE 0.00 K/mm3 (0.00-0.02); NRBC Auto 0.0 /100 WBC (0.0-0.2); Platelet Count 203 K/mm3 (150-400); RDW Coefficient Variation 17.7 % (11.7-14.2); RDW Standard Deviation 56.8 fL (35.1-46.3)
[2025-06-30 05:26] LABS: Alanine Aminotransfer (ALT/SGP 32.0 U/L (12-78); Albumin, Blood 2.9 g/dL (3.4-5.0); Albumin/Globulin Ratio 0.7 (0.8-1.8); Anion Gap 6.0 mmol/L (3-11); Aspartate Aminotrans (AST/SGOT 40.0 U/L (12-37); Bilirubin, Total 1.0 mg/dL (0.1-1.0); Blood Urea Nitrogen 22.0 mg/dL (8-24); CO2, Blood 35.0 mmol/L (21-32); Calcium, Blood 8.1 mg/dL (8.5-10.1); Chloride, Blood 94.0 mmol/L (98-108); Creatinine, Blood 1.0 mg/dL (0.60-1.20); Globulin, Blood 4.4 g/dL (2.2-4.0); Glucose, Blood 76.0 mg/dL (70-99); Magnesium, Blood 2.2 mg/dL (1.6-2.4); Potassium, Blood 4.2 mmol/L (3.5-5.5); Sodium, Blood 131.0 mmol/L (136-145); Total Protein, Blood 7.3 g/dL (6.4-8.2)
--- NOTE | 2025-06-30 05:39 | NUR ---
PT A&O, C/0 PAIN IN LEFT NECK AND SHOULDER MEDICATION GIVEN RX. PT URINATING INDEPENDENTLY WITH CLEAR YELLOW URINE. PT HAS 2+ PITTING EDEMA, LLE WOUND ON POSTERIOS CALF LEAKING SMALL SS FLUID. DRESSINGS APPLIED. MARICHUY HOSE NOT APPLIED DUE TO EF OF 15% AND BLE PURPLISH LE.
[2025-06-30 07:14] VITALS: BP 98/74
[2025-06-30 09:59] LABS: CORONAVIRUS COVID-19 AG Negative (NEGATIVE)
[2025-06-30] MEDS ORDERED: ATOR20 PO (10:48)
[2025-06-30] MEDS ORDERED: FURO40 PO (10:49)
[2025-06-30] MEDS ORDERED: METO25ER PO (10:57)
[2025-06-30] MEDS ORDERED: POTCHL20ER PO (10:59)
[2025-06-30] MEDS ORDERED: JARDIANCE10 MG PO (11:03)
[2025-06-30] MEDS ORDERED: DICLOFENAC SODI50 GM TOP (11:03)
[2025-06-30] MEDS ORDERED: MAGNESIUM OXID500 MG PO (11:03)
[2025-06-30] MEDS ORDERED: MIDO5 PO (11:04)
[2025-06-30] MEDS ORDERED: TRAM50 PO (11:04)
[2025-06-30] MEDS ORDERED: ALDACTONE25 MG PO (11:04)
--- NOTE | 2025-06-30 11:43 | NUR ---
DISCHARGE NOTE PATIENT BELONGINGS GATHERED AND RETURNED, SENT WITH TRANSPORT. REPORT CALLED AND GIVEN TO CARLIN AT FACILITY PER CASE MANAGEMENT. IV REMOVED. PT UPDATED JOAQUINER INDEPENDENTLY ON DISCHARGE. PACKET SENT WITH PATIENT FOR FACILITY. NO NEW QUESTIONS OR CONCERNS PRIOR TO DC. COULD NOT COMPLETE DAILY WOUND CARE TODAY, PASSED ALONG IN REPORT.
== END 2025-06-30 11:34 | disposition hospice, home (50) | DRG 291 ==
LOC: ER 15:40 → MEDS 15:41 → ERHOLD 15:41 → MEDS 06-23 00:21
PROVIDERS: Nurse Practitioner Acute Care; ADMIT Student in an Organized Health Care Education/Training Program
DX: I11.0 Hypertensive heart disease with heart failure (principal); J96.21 Acute and chronic respiratory failure with hypoxia; T82.857A Stenosis of other cardiac prosthetic devices, implants and grafts, initial encounter; L03.116 Cellulitis of left lower limb; I48.20 Chronic atrial fibrillation, unspecified; R78.81 Bacteremia; D64.9 Anemia, unspecified; E11.9 Type 2 diabetes mellitus without complications; Z66 Do not resuscitate; Z99.81 Dependence on supplemental oxygen; B96.89 Other specified bacterial agents as the cause of diseases classified elsewhere; Z51.5 Encounter for palliative care; J44.9 Chronic obstructive pulmonary disease, unspecified; G47.33 Obstructive sleep apnea (adult) (pediatric); F41.9 Anxiety disorder, unspecified; I50.82 Biventricular heart failure; I27.20 Pulmonary hypertension, unspecified; E87.6 Hypokalemia; I95.9 Hypotension, unspecified; G25.81 Restless legs syndrome; M10.9 Gout, unspecified; I08.3 Combined rheumatic disorders of mitral, aortic and tricuspid valves; M54.2 Cervicalgia; Z88.8 Allergy status to other drugs, medicaments and biological substances; Z79.899 Other long term (current) drug therapy; Z79.84 Long term (current) use of oral hypoglycemic drugs; Z86.19 Personal history of other infectious and parasitic diseases; Z95.4 Presence of other heart-valve replacement; Z87.891 Personal history of nicotine dependence; Y71.2 Prosthetic and other implants, materials and accessory cardiovascular devices associated with adverse incidents
CPT/HCPCS: 36415; 71046; 80048; 80053; 82728; 82947; 83540; 83550; 83735; 83880; 84145; 85014; 85018; 85025; 85027; 87426-QW; 93306; 93926; 94640; 94664; 94760; 96365; 96375; 96376; 99285-25; A9270; G0378; J0696; J1938; J2405; J3373; J3480; J7040; J7050